=== PATIENT | female | born 1960 | race Caucasian/White ===

== ENCOUNTER 2016-08-08 09:06 | Emergency (ER) | payer MEDICARE ==
[2016-08-08 09:06] VITALS: BMI 29.4
[2016-08-08] MEDS ORDERED: SODIUM CHLORIDE 0.9% 10 ML FLUSH FLUSH PRN (09:15)
[2016-08-08] MEDS ORDERED: ACETAMINOPHEN 325 MG/TAB TABLET PO ONE (09:15)
[2016-08-08] MEDS ORDERED: ONDANSETRON HCL 4 MG/2 ML VIAL IV ONE (09:15)
[2016-08-08] MEDS ORDERED: NS 1,000 ML IV ONE (09:15)
--- NOTE | 2016-08-08 09:18 | EDPRACDOC ---
- General Information Stated Complaint: ABD PAIN Time Seen by Provider: 08/08/16 09:10 Information Source: Patient Home Medications: Home Medications Aspirin [Aspirin, Chewable] 81 mg PO DAILY 02/14/15 Divalproex Sodium [Depakote Sprinkle] 125 mg PO BID 02/14/15 Divalproex Sodium [Depakote] 250 mg PO BID 02/14/15 Epinephrine [Epipen] 0.3 mg IM . DIRECTED PRN 02/14/15 Lisinopril [Prinivil] 5 mg PO DAILY 02/14/15 Multivitamin [Daily Vitamin] 1 tab PO DAILY 02/14/15 [place]-3 Fatty Acids/Fish Oil [Fish Oil 1,000 mg Softgel] 1 cap PO BID 02/14/15 Lorazepam [Ativan] 0.5 mg PO BID 04/22/15 Quetiapine Fumarate [Seroquel] 25 mg PO .DAILY@1800 04/01/16 Simvastatin [Zocor] 10 mg PO QHS 04/01/16 Lorazepam [Ativan] 0.5 mg PO BID PRN 04/02/16 Pantoprazole Sodium [Protonix] 40 mg PO DAILY #30 tablet 07/16/16 Ondansetron HCl [Zofran] 4 mg PO Q8H PRN #15 tab 08/08/16 Oseltamivir Phosphate [Tamiflu] 75 mg PO BID #10 capsule 08/08/16 Allergies/Adverse Reactions: Allergies Allergy/AdvReac Type Severity Reaction Status Date / Time venom-honey bee Allergy Unknown Verified 04/01/16 23:46 [bee venom (honey bee)] - History of Present Illness Onset: yesterday HPI: Pt c/o upper abd pain, n/v/d, productive cough, body aches x 2 days. Pt states 2 episodes of vomiting and 4 episodes of diarrhea in 24 hours. Denies fever, earache, sore throat, cp, sob, rash. Hx CP Shortness of Breath: None Relevant History of: Reports: None Cough: Reports: Productive, White Rhinorrhea: Reports: None Fever Severity/Quality: Reports: no fever Ear Symptoms: Reports: None Associated Signs & Symptoms: Reports: Cough, Nausea, Vomiting, Diarrhea, Myalgia Oral Intake: Decreased Urinary Output: Normal ED Past Medical History - History Reviewed Yes Nurses notes reviewed and agree except as marked - Patient Medical History Neurological History: Reports: Seizures, Migraine Cardiac History: Reports: Hypertension Respiratory History: Reports: Asthma, Pneumonia GI/ History: Reports: Gastroesophageal Reflux Musculoskeletal History: Reports: Arthritis Psychological History: Reports: Depression. Denies: Substance Use Disorder Systemic History: Reports: Anemia. Denies: Diabetes Surgical History: Reports: Cholecystectomy (03/2016 Dr. Guzman.), Hysterectomy, Tonsillectomy, Tonsillectomy/Adnoidectomy - Family Medical History Reports: Diabetes (Mother), Cancer (Mother) - Social Medical History Smoking Status: Never smoker Social History: Denies: Substance Use Disorder ETOH: None Substance Abuse: None EDM Review of Systems - Review of Systems Constitutional: No Symptoms Reported. negative: Fever, Chills, Weakness, Fatigue, Loss of Appetite Ears: No Symptoms Reported. negative: Pain, Hearing Loss, Drainage, Ear Pulling Throat: No Symptoms Reported. negative: Pain, Swelling Nose: No Symptoms Reported. negative: Congestion, Bleeding, Discharge, Injection, Swelling, Deformity, Ecchymosis, Tender, Abrasion, Laceration Mouth: No Symptoms Reported. negative: Pain, Drooling Respiratory: Cough Cardiovascular: No Symptoms Reported. negative: Chest Pain, Palpitations, Syncope, Edema, Orthopnea, PND, Skin Mottling, Cyanosis Gastrointestinal: Diarrhea, Nausea, Pain, Vomiting Genitourinary: No Symptoms Reported. negative: Dysuria, Hematuria, Frequency, Discharge, Bleeding, Testicular Pain, Neurological: No Symptoms Reported. negative: Headache, Dizziness, Seizure, Numbness, Weakness, Speech Difficulty, Gait Difficulty Musculoskeletal: No Symptoms Reported. negative: Neck, Chestwall, Ribs, Back, Shoulder, Arm, Elbow, Forearm, Wrist, Hand, Pelvis, Hip, Femur, Knee, Leg, Ankle , Foot Integumentary: Wound. negative: No Symptoms Reported, Bruising, Itching, Rash Allergic/Immunologic: No Symptoms Reported. negative: Hives, Itching Hematologic: No Symptoms Reported. negative: Lymphadenopathy, Easy Bruising, Easy Bleeding Psychiatric: No Symptoms Reported. negative: Anxiety, Depression, Hallucinations, Insomnia, Suicidal - Physical Exam Constitutional: Alert Oriented to: Time, Person, Place Last recorded Vital Signs: Oxygen Pulse Oxygen Saturation O2 Device Oxygen Flow Rate Fraction of Inspired Oxygen ( FIO2) - HEENT Head: Normal ( normocephalic) Eye Exam: Normal (PERRL, EOMI, Sclera white) Oropharynx: Normal (Pharynx:Moist without exudate,Gums-no swelling) Tympanic Membrane: Normal ENT EAC: Normal Nose: Abrasion Neck: Normal (FROM, trachea at midline) - Respiratory/Cardiovascular Respiratory: Normal - CTA (BBS clear to auscultation without adventitious sounds ) Cardiovascular: Normal (RRR without murmur, gallop or rub) - GI Auscultation: Normal (NABS) Palpation: Normal (Soft,No rebound or guarding, non distended) Tenderness: Non tender - Musculoskeletal Back: Normal (Non-Tender) Extremities: Normal (Normal tone, Pulses 2+ No cyanosis or edema, FROM) - Integumentary Skin: Normal, Warm, Dry Lymphatics: Normal (no adenopathy) - Neurologic Memory Impaired: Normal Motor Function: Normal (Normal tone, Pulses 2+ No cyanosis or edema, FROM) Mood Description: Normal - Differential Diagnosis Influenza A B, Pneumonia, URI, Viral - Results 08/08/16 09:20 08/08/16 09:20 08/08/16 10:20 Laboratory Results - last 24 hr 08/08/16 08/08/16 08/08/16 09:20 09:20 09:30 WBC 6.9 RBC 3.97 L Hgb 8.6 L Hct 27.5 L MCV 69 L MCH 21.7 L MCHC 31.3 L RDW 17.5 H Plt Count 432 H MPV 7.8 Neut % (Auto) 43.4 L Lymph % (Auto) 41.3 [place] % (Auto) 12.5 H Eos % (Auto) 1.7 Baso % (Auto) 1.1 Absolute Neuts (auto) 2.97 Absolute Lymphs (auto) 2.83 Vacuolated Neuts 1+ Atypical Lymphocytes Mod amt Platelet Estimate Plt clumps present RBC Morphology 1+ schisto Sodium 141 Potassium 4.2 Chloride 104 Carbon Dioxide 27 Anion Gap 14 BUN 15 Creatinine 1.20 H Estimated GFR (MDRD) 46 L Glucose 85 Calculated Osmolality 271 Calcium 9.3 Corrected Calcium 9.5 Total Bilirubin 0.3 AST 24 ALT 21 Alkaline Phosphatase 86 Total Protein 7.4 Albumin 3.8 Lipase 171 Urine Color Pale yell0w Urine Clarity Clear Urine pH 6.0 Ur Specific [place] 1.010 Urine Protein Neg Urine Glucose (UA) Neg Urine Ketones Neg Urine Occult Blood Neg Urine Nitrite Neg Urine Bilirubin Neg Urine Urobilinogen 0.2 Ur Leukocyte Esterase Trace Urine RBC 0-2 Urine WBC 0-2 Urine Bacteria Few Urine Mucus Occ Decision Time to Discharge: 10:21 - Departure Disposition: Home Condition: Good Final Diagnosis: Influenza, Nausea, vomiting and diarrhea Instructions: Acute Nausea and Vomiting (ED), Influenza (ED) Education/Counseling Given To: Patient Education/Counseling Given Regarding: Diagnosis, Treatment, Follow Up Referrals: Smooth Little MD [Primary Care Provider] - One Week Prescriptions: Ondansetron HCl [Zofran] 4 mg PO Q8H PRN #15 tab PRN Reason: Nausea/Vomiting Oseltamivir Phosphate [Tamiflu] 75 mg PO BID #10 capsule Additional Instructions: Drink sips of Gatorade every 2-3 minutes while awake. Do NOT drink large volumes of fluid at once. If you vomit, take the nausea-vomiting medicine prescribed, wait ~ 30 minutes, and restart the sipping process. Return to the Emergency Department if you think you are getting dehydrated, have persistent abdominal pain that is unrelenting, have worse or different symptoms, or any concerns.
[2016-08-08 09:25] VITALS: TEMP 98.6
[2016-08-08 09:30] LABS: AUTOMATED BASOPHIL 1.1 % (0-2); AUTOMATED EOSINOPHIL 1.7 % (0-5); AUTOMATED LYMPH 41.3 % (17-44); AUTOMATED MONOCYTE 12.5 % (3-10); AUTOMATED NEUTROPHIL 43.4 % (45-76); MPV 7.8 fL (7.4-10.4)
[2016-08-08 09:51] LABS: BLOOD UREA NITROGEN 15 MG/DL (7-17); CALC CORRECTED 9.5 MG/DL (8.4-10.2); CALCIUM 9.3 MG/DL (8.4-10.2); CALCULATED OSMOLALITY 271 MOs/Kg (270-290); CHLORIDE 104 mEq/L (98-107); GLUCOSE 85 MG/DL (70-99); SODIUM LEVEL 141 mEq/L (137-146); TOTAL PROTEIN 7.4 G/DL (6.3-8.2)
[2016-08-08 09:51] LABS: LEUKOCYTES/URINE TRACE (NEGATIVE); NITRITE/URINE NEG (NEGATIVE); URINE OCCULT BLOOD NEG (NEG/TRACE)
[2016-08-08 09:54] LABS: RBC/URINE 0-2 (0-5); WBC/URINE 0-2 (0-5)
[2016-08-08 13:10] VITALS: BP 154/82; PULSE 89
== END 2016-08-08 12:45 | disposition home or self-care (01) ==
LOC: ED 09:06
DX: J11.1 Influenza due to unidentified influenza virus with other respiratory manifestations (principal); R11.2 Nausea with vomiting, unspecified; R11.10 Vomiting, unspecified; R19.7 Diarrhea, unspecified
CPT/HCPCS: 36415; 80053; 81001; 83690; 85025; 87804; 96361; 96374; 99284; A9270; J2405; J3490